=== PATIENT | female | born 1995 | race Caucasian/White ===

== ENCOUNTER 2016-12-02 22:23 | Emergency (ER) | payer MEDICAID, OTHER ==
[~2016-12-02] VITALS: Ht 165.1 cm; Wt 62.1 kg
[2016-12-02 22:30] VITALS: BP 120/63
--- NOTE | 2016-12-02 23:05 | NUR ---
PATIENT LEFT WITHOUT BEING SEEN BY DR. Mathur. NO FURTHER CARE PROVIDED FOR PATIENT.
== END 2016-12-02 23:05 | disposition left against medical advice (07) ==
LOC: MED 22:23
DX: M25.531 Pain in right wrist (principal); Z53.21 Procedure and treatment not carried out due to patient leaving prior to being seen by health care provider
CPT/HCPCS: 73110

== ENCOUNTER 2016-12-03 00:14 | Emergency (ER) | payer OTHER ==
[~2016-12-03] VITALS: Ht 165.1 cm; Wt 59.0 kg
[2016-12-03 00:18] VITALS: BP 107/58
--- NOTE | 2016-12-03 00:31 | NUR ---
PATIENT AMBULATED TO ER BED 6.
--- NOTE | 2016-12-03 00:42 | NUR ---
PATIENT PRESENTS TO ED WITH C/O RIGHT WRIST PAIN S/P FALL WHILE SKATING . PT DENIES N/V/D; SKIN IS PINK/WARM/DRY; AAOX4 WITH EVEN AND STEADY GAIT; LUNGS CLEAR BL; HR EVEN AND REGULAR; PT DENIES ANY FEVER, CP, SOB, OR COUGH AT THIS TIME; PATIENT STATES PAIN OF 2/10 AT THIS TIME; VSS; PATIENT POSITIONED FOR COMFORT; HOB ELEVATED; BEDRAILS UP X2; BED DOWN. ER MD MADE AWARE OF PT STATUS.
--- NOTE | 2016-12-03 00:55 | NUR ---
PATIENT BEING EVALUATED BY DR. GARCIA.
[2016-12-03] MEDS ORDERED: KETOROLAC 60 MG/2 ML VIAL IM ONE (01:00)
[2016-12-03 01:28] VITALS: BP 110/62
== END 2016-12-03 01:28 | disposition home or self-care (01) ==
LOC: MED 00:14
DX: S52.611A Displaced fracture of right ulna styloid process, initial encounter for closed fracture (principal); S52.511A Displaced fracture of right radial styloid process, initial encounter for closed fracture; S62.111A Displaced fracture of triquetrum [cuneiform] bone, right wrist, initial encounter for closed fracture; W01.0XXA Fall on same level from slipping, tripping and stumbling without subsequent striking against object, initial encounter; Y93.89 Activity, other specified; Y92.89 Other specified places as the place of occurrence of the external cause; Y99.8 Other external cause status
CPT/HCPCS: 29125; 73110; 96372; 99284; J1885

== ENCOUNTER 2020-04-14 10:00 | Emergency (ER) | payer MEDICAID, OTHER ==
[~2020-04-14] VITALS: Ht 167.6 cm; Wt 84.0 kg
[2020-04-14 10:06] VITALS: BP 114/62
[2020-04-14] MEDS ORDERED: LIDOCAINE MPF 1% 10 MG/ML VIAL INJ ONE (10:25)
[2020-04-14] MEDS ORDERED: BACITRACIN OINT 500 UNITS/GM PKT TP ONE (10:57)
== END 2020-04-14 11:10 | disposition home or self-care (01) ==
LOC: MED 10:00
DX: T16.2XXA Foreign body in left ear, initial encounter (principal); H61.01 Acute perichondritis of external ear; Z34.90 Encounter for supervision of normal pregnancy, unspecified, unspecified trimester; X58.XXXA Exposure to other specified factors, initial encounter; Y93.89 Activity, other specified; Y92.89 Other specified places as the place of occurrence of the external cause; Y99.8 Other external cause status
CPT/HCPCS: 99284; J2001; 99283

== ENCOUNTER 2020-12-13 19:13 | Emergency (ER) | payer MEDICAID, SELFPAY ==
[~2020-12-13] VITALS: Ht 167.6 cm; Wt 81.6 kg
[~2020-12-13 19:13] MED LIST: PRETAB PO
[2020-12-13 19:31] VITALS: BP 125/85
--- NOTE | 2020-12-13 19:31 | NUR ---
TO BED AMBULATORY
--- NOTE | 2020-12-13 19:57 | NUR ---
ERMD AT BEDSIDE FOR MEDICAL EVALUATION.
--- NOTE | 2020-12-13 20:00 | NUR ---
PT PRESENTED TO ED C/O RT FLANK/LOWER ABD PAIN X 1HR AGO. 04/10 PAIN AND DESCRIBES IT "PULLING". +DECREASE IN APPETITE. -N,V,D,OR CONSTIPATION. ABD IS SOFT, ROUND, ACTIVE BS, AND TENDERNESS TO TOUCH ON RLQ. LAST BM WAS THIS AM AND PT SAID IT WAS NORMAL. DENIES TAKING ANY PAIN MEDS. DENIES ANY BLOOD IN HER URINE OR ANY DYSURIA. NKDA. PMH: DENIES.
[2020-12-13 20:34] LABS: BASOPHILS # (AUTO) 0.1 K/uL (0.00-0.22); BASOPHILS % (AUTO) 0.6 % (0.0-2.0); EOSINOPHILS % (AUTO) 0.2 % (0.0-4.0); HEMATOCRIT 38.7 % (36-48); HEMOGLOBIN 12.6 g/dL (12.0-16.0); LYMPHOCYTES # (AUTO) 1.4 K/uL (2.5-16.5); LYMPHOCYTES % (AUTO) 7.7 % (20.5-51.1); MEAN CORPUSCULAR HEMOGLOBIN 27 pg (27-31); MEAN CORPUSCULAR HGB CONC 33 g/dL (33-37); MEAN CORPUSCULAR VOLUME 83.6 fL (80-94); MONOCYTES # (AUTO) 0.9 K/uL (0.8-1.0); MONOCYTES % (AUTO) 4.8 % (1.7-9.3); NEUTROPHILS % (AUTO) 86.7 % (42.2-75.2); PLATELET COUNT (AUTO) 325 K/uL (140-450); RED BLOOD CELL COUNT(AUTO) 4.63 MIL/uL (4.20-5.40); RED CELL DISTRIBUTION WIDTH 14.8 % (11.6-13.7); WHITE BLOOD COUNT (AUTO) 18.5 K/uL (4.8-10.8)
--- NOTE | 2020-12-13 20:37 | NUR ---
PT TAKEN TO CT VIA W/C.
--- NOTE | 2020-12-13 20:48 | NUR ---
PT RETURNED BACK FROM CT VIA W/C.
[2020-12-13 21:02] LABS: ANION GAP 15.7 (8-16); CREATININE 0.7 mg/dL (0.6-1.3); POTASSIUM 3.7 mmol/L (3.5-5.1)
[2020-12-13 21:08] LABS: TOTAL BILIRUBIN 0.2 mg/dL (0.0-1.0)
[2020-12-14] MEDS ORDERED: MAGN1.7529 PO (00:05)
[2020-12-14] MEDS ORDERED: MIRABULK PO (00:05)
[2020-12-14 00:19] VITALS: BP 127/76
--- NOTE | 2020-12-14 00:19 | NUR ---
Patient discharged with v/s stable. Written and verbal after care instructions given and explained. Patient alert, oriented and verbalized understanding of instructions. Ambulatory with steady gait. All questions addressed prior to discharge. ID band removed. Patient advised to follow up with PMD. Rx of MAGNESIUM CITRATE, AND POLYETHYLENE GLYCOL given. Patient educated on indication of medication including possible reaction and side effects. Opportunity to ask questions provided and answered.
== END 2020-12-14 00:19 | disposition home or self-care (01) ==
LOC: MED 19:13
DX: T18.9XXA Foreign body of alimentary tract, part unspecified, initial encounter (principal); R10.31 Right lower quadrant pain; Z79.899 Other long term (current) drug therapy; X58.XXXA Exposure to other specified factors, initial encounter; Y93.89 Activity, other specified; Y92.89 Other specified places as the place of occurrence of the external cause; Y99.8 Other external cause status
CPT/HCPCS: 36415; 80053; 81002; 81025; 85025; 86140; 99284

== ENCOUNTER 2023-02-15 11:09 | Emergency (ER) | payer MEDICAID ==
[~2023-02-15] VITALS: Ht 167.6 cm; Wt 78.0 kg
[~2023-02-15 11:09] MED LIST changes: +MAGN296S70 PO; +MIRABULK PO
[2023-02-15 11:14] VITALS: BP 137/78; PULSE 105; RESP 20; TEMP 97.5; O2SAT 99
== END 2023-02-15 12:47 | disposition home or self-care (01) ==
LOC: MED 11:09
DX: L98.9 Disorder of the skin and subcutaneous tissue, unspecified (principal); Z79.899 Other long term (current) drug therapy
CPT/HCPCS: 99281